=== PATIENT | female | born 1950 | race Caucasian/White ===

== ENCOUNTER → 2018-10-20 17:05 | Outpatient (CLI) | payer MEDICARE, SELFPAY ==
--- NOTE | 2018-10-20 17:07 | MRI_ITS ---
STUDY: MRI LUMBAR SPINE WITHOUT CONTRAST REASON FOR EXAM: Female, 68 years old. Radiculopathy. Severe low back pain. Left hip pain. TECHNIQUE: Standardized fat and water weighted pulse sequences were obtained in the sagittal and axial planes. COMPARISON: None. FINDINGS: Lumbar lordosis preserved. No significant scoliosis. Conus medullaris terminates normally at the L1 level. T12-L1: Normal endplates. Normal disc height, hydration and morphology. Normal bilateral facet joints. Normal central canal and bilateral lateral recesses. Normal bilateral intervertebral neural foramina. L1-2: Minimal endplate spondylosis. Disc bulge, slight cephalad extension, with mild central canal narrowing. Normal bilateral facet joints. Normal bilateral lateral recesses. Normal bilateral intervertebral neural foramina. L2-3: Normal endplates. Disc bulge with mild central canal narrowing. Facet joint arthrosis. Normal bilateral lateral recesses. Bilateral neural foraminal narrowing without impingement. L3-4: Minimal endplate spondylosis. Left paracentral caudal large disc extrusion measuring 12 mm x 18 mm x 20 mm (axial image 13 series 5 and sagittal image 7 series 2) with severe central canal narrowing. Facet joint arthrosis. Bilateral lateral recess narrowing at impingement, left greater than right. Left neural foraminal narrowing with impingement. L4-5: Minimal endplate spondylosis. Disc bulge/uncovering with severe central canal narrowing. Facet joint arthrosis. Bilateral lateral recess narrowing with impingement. Bilateral neural foraminal narrowing without impingement. Grade 1 spondylolisthesis. L5-S1: Normal endplates. Disc bulge without central canal narrowing. Facet joint arthrosis. Normal central canal and bilateral lateral recesses. Normal bilateral intervertebral neural foramina. Vacuum phenomenon. Sacrum intact. Normal aorta. Normal retroperitoneum. Normal paraspinal muscles. 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
== END ==
PROVIDERS: Family Provider Family Medicine; PCP Family Medicine; Referring Provider Nurse Practitioner Family; Visit Provider Nurse Practitioner Family
DX: M51.17 Intervertebral disc disorders with radiculopathy, lumbosacral region (principal); M48.07 Spinal stenosis, lumbosacral region; M47.27 Other spondylosis with radiculopathy, lumbosacral region; M46.96 Unspecified inflammatory spondylopathy, lumbar region
CPT/HCPCS: 72148